=== PATIENT | female | born 1940 | race Caucasian/White ===

== ENCOUNTER 2021-02-11 16:40 | Inpatient (IN) | payer MEDICARE, MEDICAID ==
[~2021-02-11] VITALS: Ht 160 cm; Wt 75.4 kg
[~2021-02-11 16:40] MED LIST: FANAPT4 MG PO
[2021-02-11] MEDS ORDERED: ATIVAN0.5 MG PO (17:12)
[2021-02-11] MEDS ORDERED: ASPIRIN ADULT L81 M1 PO (17:12)
[2021-02-11] MEDS ORDERED: CYMBALTA60 MG PO (17:13)
[2021-02-11] MEDS ORDERED: LIPITOR40 MG PO (17:13)
[2021-02-11] MEDS ORDERED: COLACE100 MG PO (17:14)
[2021-02-11] MEDS ORDERED: LASIX20 MG PO (17:15)
[2021-02-11] MEDS ORDERED: ZETIA10 MG PO (17:15)
[2021-02-11] MEDS ORDERED: XALATAN 0.005%2.5 ML INTRAOC (17:16)
[2021-02-11] MEDS ORDERED: LIDODERM1 EACH T (17:16)
[2021-02-11] MEDS ORDERED: METOPROLOL SUCC50 M1 PO (17:17)
[2021-02-11] MEDS ORDERED: ESSENTIAL DAIL1 EACH PO (17:18)
[2021-02-11] MEDS ORDERED: PROTONIX40 MG PO (17:19)
[2021-02-11] MEDS ORDERED: POTASSIUM CHLO10 MEQ PO (17:19)
[2021-02-11] MEDS ORDERED: SINGULAIR10 M1 PO (17:20)
[2021-02-11] MEDS ORDERED: [UNRECOGNIZED DRUG - OTHER] INTRAOC (17:24)
[2021-02-11] MEDS ORDERED: VITAMIN D3125 MC1 PO (17:25)
[2021-02-11] MEDS ORDERED: TOPAMAX50 MG PO (17:25)
[2021-02-11] MEDS ORDERED: DORZOLAMIDE HYD10 M4 OP (17:26)
[2021-02-11] MEDS ORDERED: MAGOX 400400 MG PO (17:29)
[2021-02-11] MEDS ORDERED: FANAPT6 MG PO (17:29)
[2021-02-11] MEDS ORDERED: SENNA8.6 MG PO (17:30)
[2021-02-11] MEDS ORDERED: MIDODRINE HCL2.5 MG PO (17:31)
[2021-02-11] MEDS ORDERED: MIRAPEX0.125 M1 PO (17:32)
[2021-02-11] MEDS ORDERED: PROPAFENONE HC225 MG PO (17:32)
[2021-02-11] MEDS ORDERED: VENTOLIN 02.5 MG/3 M INH (17:33)
[2021-02-11] MEDS ORDERED: MILK OF MA400 MG/5 M PO (17:34)
[2021-02-11] MEDS ORDERED: DULCOLAX10 M1 R (17:35)
[2021-02-11] MEDS ORDERED: FLEET MINERAL133 ML R (17:36)
[2021-02-11] MEDS ORDERED: HYDROCODONE-AC1 EAC2 PO (17:37)
[2021-02-11] MEDS ORDERED: ZOFRAN4 MG PO (17:38)
[2021-02-11 22:57] VITALS: BP 149/83
[2021-02-12 06:17] LABS: BASO # 0.1 10*3/uL (0.0-0.1); BASO % 1.7 % (0.0-1.0); EOS # 0.2 10*3/uL (0.0-0.4); EOS % 6.7 % (1.0-4.0); HEMATOCRIT 34.9 % (37.0-47.0); LYMPH # 1.5 10*3/uL (1.3-4.4); LYMPH % 42.3 % (27.0-41.0); MEAN CELL VOLUME 95.9 fl (81.0-99.0); MEAN CORPUSCULAR HGB CONC 32.4 g/dl (33.0-37.0); MEAN PLATELET VOLUME 10.7 fl (9.6-12.3); MONO # 0.4 10*3/uL (0.1-1.0); MONO % 11.4 % (3.0-9.0); NEUT # 1.4 10*3/uL (2.3-7.9); NEUT % 37.9 % (47.0-73.0); PLATELET COUNT AUTOMATED 128 10*3/uL (130-400); RED BLOOD COUNT 3.64 10*6/uL (4.10-5.10); RED CELL DISTRI WIDTH 13.5 % (0-14.5); WHITE BLOOD COUNT 3.6 10*3/uL (4.8-10.8)
[2021-02-12 06:33] LABS: ALBUMIN 2.7 gm/dl (3.1-4.5); CREATININE 1.54 mg/dL (0.55-1.02); POTASSIUM 3.1 mmol/L (3.5-5.1); TOTAL PROTEIN 5.7 gm/dL (6.4-8.2)
[2021-02-12 06:40] LABS: THYROID STIM HORMONE (HS) 3.34 uIU/ml (0.358-4.75)
[2021-02-12 07:11] VITALS: BP 149/86
[2021-02-12 08:10] LABS: VITAMIN D, 25-HYDROXY 46.1 ng/mL (30-100)
[2021-02-12 08:15] VITALS: BP 149/86
[2021-02-12 14:32] LABS: BILIRUBIN Negative (Negative); BLOOD Negative (Negative); CLARITY Clear (Clear); COLOR Yellow (Yellow); GLUCOSE Negative (Negative); KETONE Negative (Negative); LEUKO ESTERASE 2+ (Negative); NITRITE Negative (Negative); PH 6.5 (4.5-8.0); UROBILINOGEN 0.2 E.U./dl (0.0-1.0)
[2021-02-12 14:44] LABS: BACTERIA 1+; EPITHELIAL CELLS 21-30; WBC 31-40 wbc/hpf (0-5)
[2021-02-13 08:22] VITALS: BP 129/57
[2021-02-13 20:00] VITALS: BP 99/53
[2021-02-14 07:47] VITALS: BP 120/62
[2021-02-14 20:00] VITALS: BP 103/46
[2021-02-15 07:54] VITALS: BP 126/72
[2021-02-15 20:00] VITALS: BP 124/72
[2021-02-16 07:23] VITALS: BP 117/54
[2021-02-16 20:00] VITALS: BP 101/64
[2021-02-17 07:57] VITALS: BP 112/70
[2021-02-17 20:00] VITALS: BP 122/58
[2021-02-18 07:28] VITALS: BP 132/59
[2021-02-18 20:00] VITALS: BP 135/68
[2021-02-19 08:00] VITALS: BP 118/62
[2021-02-19 19:46] VITALS: BP 131/56
[2021-02-20 07:42] VITALS: BP 156/71
[2021-02-20 20:00] VITALS: BP 131/77
[2021-02-21 07:12] VITALS: BP 128/68
[2021-02-21 20:00] VITALS: BP 123/73
[2021-02-22 07:11] VITALS: BP 129/77
[2021-02-22 19:57] VITALS: BP 124/60
[2021-02-23 07:19] VITALS: BP 150/79
[2021-02-23 08:00] VITALS: BP 148/68
[2021-02-23 19:47] VITALS: BP 168/68
[2021-02-24 07:00] LABS: CREATININE 1.25 mg/dL (0.55-1.02)
[2021-02-24 07:20] VITALS: BP 167/71
[2021-02-24 08:04] VITALS: BP 142/68
[2021-02-24 20:00] VITALS: BP 125/60
[2021-02-25 07:55] VITALS: BP 160/76
[2021-02-25 20:00] VITALS: BP 148/76
[2021-02-26 07:35] VITALS: BP 150/70
[2021-02-26 20:00] VITALS: BP 171/77
[2021-02-27 07:13] VITALS: BP 142/67
[2021-02-27 07:22] LABS: CREATININE 1.33 mg/dL (0.55-1.02); POTASSIUM 3.6 mmol/L (3.5-5.1)
[2021-02-27 19:08] VITALS: BP 150/72
[2021-02-28 08:00] VITALS: BP 148/68
[2021-02-28 20:00] VITALS: BP 146/72
[2021-03-01 07:22] VITALS: BP 142/64
[2021-03-01 20:00] VITALS: BP 152/80
[2021-03-02 07:05] VITALS: BP 148/76
[2021-03-02 20:00] VITALS: BP 149/73
[2021-03-03 08:06] VITALS: BP 145/79
[2021-03-03] MEDS ORDERED: CLONAZEPAM0.5 M2 PO (09:41)
[2021-03-03] MEDS ORDERED: VITAMIN D3125 MC1 PO (09:41)
[2021-03-03] MEDS ORDERED: DULOXETINE HCL60 MG PO (09:41)
[2021-03-03] MEDS ORDERED: MEMANTINE HCL10 MG PO (09:41)
[2021-03-03] MEDS ORDERED: RIVASTIGMINE1 EAC2 T (09:41)
[2021-03-03] MEDS ORDERED: TOPAMAX25 M3 PO (09:41)
[2021-03-03] MEDS ORDERED: DULOXETINE HCL30 MG PO (09:41)
[2021-03-03 20:00] VITALS: BP 133/67
[2021-03-04 07:35] VITALS: BP 150/75
[2021-03-04 20:00] VITALS: BP 132/74
[2021-03-04 21:30] VITALS: BP 158/76
[2021-03-05 07:16] VITALS: BP 147/83
[2021-03-05] MEDS ORDERED: HYDROCODONE-AC1 EAC2 PO (08:05)
[2021-03-05] MEDS ORDERED: KLONOPIN0.5 MG PO (12:28)
== END 2021-03-05 15:02 | DRG 885 ==
LOC: 3N 16:40
PROVIDERS: Registered Nurse; ADMIT Psychiatry & Neurology Psychiatry; ATTEND Psychiatry & Neurology Psychiatry
PROC: 0HBRXZZ Excision of Toe Nail, External Approach (ICD-10-PCS; principal; 2021-02-18)
PROC: 0HBRXZZ Excision of Toe Nail, External Approach (ICD-10-PCS; 2021-02-18)
PROC: 0HBRXZZ Excision of Toe Nail, External Approach (ICD-10-PCS; 2021-02-18)
PROC: 0HBRXZZ Excision of Toe Nail, External Approach (ICD-10-PCS; 2021-02-18)
PROC: 0HBRXZZ Excision of Toe Nail, External Approach (ICD-10-PCS; 2021-02-18)
PROC: 0HBRXZZ Excision of Toe Nail, External Approach (ICD-10-PCS; 2021-02-18)
PROC: 0HBRXZZ Excision of Toe Nail, External Approach (ICD-10-PCS; 2021-02-18)
PROC: 0HBRXZZ Excision of Toe Nail, External Approach (ICD-10-PCS; 2021-02-18)
PROC: 0HBRXZZ Excision of Toe Nail, External Approach (ICD-10-PCS; 2021-02-18)
PROC: 0HBRXZZ Excision of Toe Nail, External Approach (ICD-10-PCS; 2021-02-18)
DX: F33.3 Major depressive disorder, recurrent, severe with psychotic symptoms (principal); N18.9 Chronic kidney disease, unspecified; I13.0 Hypertensive heart and chronic kidney disease with heart failure and stage 1 through stage 4 chronic kidney disease, or unspecified chronic kidney disease; I48.0 Paroxysmal atrial fibrillation; E78.5 Hyperlipidemia, unspecified; J44.9 Chronic obstructive pulmonary disease, unspecified; M54.9 Dorsalgia, unspecified; I50.9 Heart failure, unspecified; G20 Parkinson's disease; E11.22 Type 2 diabetes mellitus with diabetic chronic kidney disease; K21.9 Gastro-esophageal reflux disease without esophagitis; G25.81 Restless legs syndrome; E55.9 Vitamin D deficiency, unspecified; Z20.822 Contact with and (suspected) exposure to COVID-19; G89.29 Other chronic pain; G30.9 Alzheimer's disease, unspecified; R41.9 Unspecified symptoms and signs involving cognitive functions and awareness; F02.80 Dementia in other diseases classified elsewhere, unspecified severity, without behavioral disturbance, psychotic disturbance, mood disturbance, and anxiety; B35.1 Tinea unguium; E11.69 Type 2 diabetes mellitus with other specified complication; Z90.710 Acquired absence of both cervix and uterus; Z98.890 Other specified postprocedural states; Z86.73 Personal history of transient ischemic attack (TIA), and cerebral infarction without residual deficits; Z91.041 Radiographic dye allergy status

== ENCOUNTER 2021-04-08 19:00 | Emergency (ER) | payer MEDICARE, MEDICAID ==
[~2021-04-08] VITALS: Wt 78.0 kg
[~2021-04-08 19:00] MED LIST changes: +ASPIRIN ADULT L81 M1 PO; +ATIVAN0.5 MG PO; +CLONAZEPAM0.5 M2 PO; +COLACE100 MG PO; +CYMBALTA60 MG PO; +DORZOLAMIDE HYD10 M4 OP; +DULCOLAX10 M1 R; +DULOXETINE HCL30 MG PO; +DULOXETINE HCL60 MG PO; +ESSENTIAL DAIL1 EACH PO; +FANAPT6 MG PO; +FLEET MINERAL133 ML R; +HYDROCODONE-AC1 EAC2 PO; +KLONOPIN0.5 MG PO; +LASIX20 MG PO; +LIDODERM1 EACH T; +LIPITOR40 MG PO; +MAGOX 400400 MG PO; +MEMANTINE HCL10 MG PO; +METOPROLOL SUCC50 M1 PO; +MIDODRINE HCL2.5 MG PO; +MILK OF MA400 MG/5 M PO; +MIRAPEX0.125 M1 PO; +POTASSIUM CHLO10 MEQ PO; +PROPAFENONE HC225 MG PO; +PROTONIX40 MG PO; +RIVASTIGMINE1 EAC2 T; +SENNA8.6 MG PO; +SINGULAIR10 M1 PO; +TOPAMAX25 M3 PO; +TOPAMAX50 MG PO; +VENTOLIN 02.5 MG/3 M INH; +VITAMIN D3125 MC1 PO; +XALATAN 0.005%2.5 ML INTRAOC; +ZETIA10 MG PO; +ZOFRAN4 MG PO; +[UNRECOGNIZED DRUG - OTHER] INTRAOC
[2021-04-08 19:27] LABS: BASO # 0.1 10*3/uL (0.0-0.1); BASO % 1.3 % (0.0-1.0); EOS # 0.1 10*3/uL (0.0-0.4); EOS % 2.4 % (1.0-4.0); HEMATOCRIT 40.3 % (37.0-47.0); LYMPH # 1.5 10*3/uL (1.3-4.4); LYMPH % 28.5 % (27.0-41.0); MEAN CELL VOLUME 94.4 fl (81.0-99.0); MEAN CORPUSCULAR HGB 30.2 pg (27.0-31.0); MEAN PLATELET VOLUME 10.5 fl (9.6-12.3); MONO # 0.5 10*3/uL (0.1-1.0); MONO % 8.3 % (3.0-9.0); NEUT # 3.2 10*3/uL (2.3-7.9); NEUT % 59.3 % (47.0-73.0); PLATELET COUNT AUTOMATED 152 10*3/uL (130-400); RED BLOOD COUNT 4.27 10*6/uL (4.10-5.10); RED CELL DISTRI WIDTH 12.7 % (0-14.5); WHITE BLOOD COUNT 5.4 10*3/uL (4.8-10.8)
[2021-04-08 19:49] LABS: ALBUMIN 3.2 gm/dl (3.1-4.5); ALKALINE PHOSPHATASE 86 U/L (45-117); BUN 16 mg/dl (7-24); CHLORIDE 114 mmol/L (98-107); CPK 43 U/L (26-192); CREATININE 1.49 mg/dL (0.55-1.02); POTASSIUM 3.1 mmol/L (3.5-5.1); SGOT/AST 16 IU/L (3-35); SGPT/ALT 15 U/L (12-78); SODIUM 141 mmol/L (136-145); TOTAL PROTEIN 6.9 gm/dL (6.4-8.2)
[2021-04-08 19:54] LABS: ACETAMINOPHEN (TYLENOL) < 5.0 ug/ml (10-30); ETHYL ALCOHOL < 3.0 mg/dl (<3)
[2021-04-08 20:29] LABS: BILIRUBIN Negative (Negative); BLOOD Negative (Negative); CLARITY Turbid (Clear); COLOR Yellow (Yellow); GLUCOSE Negative (Negative); KETONE Trace (Negative); LEUKO ESTERASE Negative (Negative); NITRITE Negative (Negative); SPECIFIC GRAVITY 1.015 (1.001-1.030)
[2021-04-08 20:37] LABS: URINE AMPHETAMINES < 1000 (1000ng/ml); URINE BARBITURATES < 200 (200ng/ml); URINE BENZODIAZEPINES < 200 (200ng/ml); URINE CANNABINOIDS (THC) < 50 (50ng/ml); URINE COCAINE < 300 (300ng/ml); URINE METHADONE < 300 (300ng/ml); URINE OPIATES < 300 (300ng/ml)
[2021-04-08 20:39] LABS: URINE PHENCYCLIDINE < 25 (25ng/ml)
[2021-04-08 20:49] LABS: BACTERIA TRACE; HYALINE CAST 0-2; RBC 0-2 rbc/hpf (0-2); WBC 0-2 wbc/hpf (0-5)
[2021-04-08] MEDS ORDERED: OMEPRAZOLE MAGN20 MG PO (22:41)
[2021-04-08] MEDS ORDERED: NUPLAZID34 MG PO (22:42)
[2021-04-08] MEDS ORDERED: RELISTOR SQ (22:43)
== END 2021-04-09 16:56 ==
LOC: ED 19:00
PROVIDERS: Emergency Medicine
DX: E87.6 Hypokalemia (principal); Z20.822 Contact with and (suspected) exposure to COVID-19; F41.9 Anxiety disorder, unspecified; F60.0 Paranoid personality disorder; Z91.041 Radiographic dye allergy status; Z88.8 Allergy status to other drugs, medicaments and biological substances; Z79.899 Other long term (current) drug therapy; Z79.82 Long term (current) use of aspirin; Z90.711 Acquired absence of uterus with remaining cervical stump; Z87.891 Personal history of nicotine dependence